=== PATIENT | female | born 1945 ===

== ENCOUNTER → 2016-11-16 | Outpatient (CLI) | payer OTHER | LOC: BHFA 11:30 | PROVIDERS: ATTEND Internal Medicine Cardiovascular Disease | DX: Z51.11 Encounter for antineoplastic chemotherapy (principal) ==

== ENCOUNTER → 2016-11-20 | Outpatient (CLI) | payer OTHER ==
[~2016-11-20] MED LIST: GADOBUTROL 10 ML VIAL IVP ONE
== END ==
LOC: FIMAGING 13:59
PROVIDERS: ATTEND Internal Medicine Hematology & Oncology
DX: C50.211 Malignant neoplasm of upper-inner quadrant of right female breast (principal); R63.4 Abnormal weight loss; D49.6 Neoplasm of unspecified behavior of brain
CPT/HCPCS: 70553; A9585

== ENCOUNTER 2016-12-09 07:34 | Observation (INO) | payer OTHER ==
[~2016-12-09 07:34] MED LIST changes: -GADOBUTROL 10 ML VIAL IVP ONE; +ceFAZolin 2 GM/DEXTROSE 100 ML IV ONE
[2016-12-09] MEDS ORDERED: BUPIVACAINE 0.5% 30 ML SDV ONE (08:13)
[2016-12-09] MEDS ORDERED: THROMBIN (BOVINE) 20,000 UNIT SPRAY TP ONE (08:13)
[2016-12-09] MEDS ORDERED: MIDAZOLAM 2 MG/2 ML VIAL ONE (12:37)
[2016-12-09] MEDS ORDERED: KETAMINE 100 MG/10 ML SYR ONE (12:41)
[2016-12-09] MEDS ORDERED: HYDROmorphONE/DILAUDID 2 MG/ML INJ ONE (12:41)
[2016-12-09] MEDS ORDERED: PROPOFOL 200 MG/20 ML VIAL ONE ×2 (12:41)
[2016-12-09] MEDS ORDERED: LIDOCAINE 2% 100 MG/5 ML SYR ONE (12:46)
[2016-12-09] MEDS ORDERED: ROCURONIUM 50 MG/5 ML VIAL ONE (12:47)
[2016-12-09] MEDS ORDERED: ONDANSETRON 4 MG/2 ML VIAL ONE (13:34)
[2016-12-09] MEDS ORDERED: DEXAMETHASONE 4 MG/ML VIAL ONE (13:34)
[2016-12-09] MEDS ORDERED: ACETAMINOPHEN 325 MG TAB PO PRN (14:12)
[2016-12-09] MEDS ORDERED: HYDROmorphONE/DILAUDID 1 MG/ML SYR IVP PRN (14:12)
[2016-12-09] MEDS ORDERED: ONDANSETRON 4 MG/2 ML VIAL IVP PRN (14:12)
[2016-12-09] MEDS ORDERED: diphenhydrAMINE 25 MG CAP PO PRN (14:12)
[2016-12-09] MEDS ORDERED: ONDANSETRON DISINTEGRATING 4 MG TAB PO PRN (14:12)
[2016-12-09] MEDS ORDERED: NS 1,000 ML IV SCH (14:15)
[2016-12-09] MEDS ORDERED: PHENYLEPHRINE HCL 100 MCG/ML SYR ONE (14:32)
[2016-12-09] MEDS ORDERED: SUGAMMADEX SODIUM 200 MG/2 ML VIAL IVP ONE (14:37)
[2016-12-09] MEDS ORDERED: HYDROmorphONE/DILAUDID 1 MG/ML SYR ONE (15:28)
--- NOTE | 2016-12-09 16:43 | POSTOPPROG ---
Post Op Note Date of Operation: 12/09/16 Surgeon: Funmilayo Singer Diabetes Territory Manager: alyssa Anesthesiologist: sachin Anesthesia: GET(General Endotracheal) Pre-op Diagnosis: r breast cancer Post-op Diagnosis: same Indication: 71yo F with recurrent r breast ca Procedure: b mastectomy, b sln bx, port placement Findings: b sln neg Inf/Abcess present in the surg proc area at time of surgery?: No Depth: Deep Incisional (Fascial) EBL: 50-100 Drains: Bienvenido Alberto (x2)
--- NOTE | 2016-12-09 16:46 | SOAPPROG ---
SOAP Progress Note Assessment/Plan: Assessment: CXR neg for pneumothorax Plan: 12/09/16 16:45 Objective: Vital Signs Temp Pulse Resp BP Pulse Ox 36.5 C 54 L 8 L 157/71 H 95 12/09/16 15:46 12/09/16 15:46 12/09/16 16:20 12/09/16 16:17 12/09/16 16:20 12/08/16 12/09/16 12/10/16 05:59 05:59 05:59 Intake Total 1000 Output Total 140 Balance 860 ICD10 Worksheet Patient Problems: Problems Problem Status Onset Breast cancer Acute - ICD10 Problem Qualifiers (1) Breast cancer Qualifiers: Breast location: upper inner quadrant of breast Estrogen receptor status: E Patient sex: female Laterality: right
[2016-12-09] MEDS: HYDROCODONE/APAP 5/325 TAB PO PRN ×2 (20:01→23:54)
[2016-12-10] MEDS: HYDROCODONE/APAP 5/325 TAB PO PRN ×5 (04:42→20:58)
[2016-12-10] MEDS: LEVOTHYROXINE 50 MCG TAB PO SCH (06:22)
--- NOTE | 2016-12-10 06:38 | SOAPPROG ---
SOAP Progress Note Assessment/Plan: Assessment/Plan: POD#1 s/p mily mastectomies c SLNB - Doing well, pain appears well controlled. Tolerating clears. JPs 80/60cc respectively, serosang. Flaps are flat, warm with clean dressings. OOB, reg diet. Wants to stay another day. Looking good otherwise 12/10/16 06:37 Objective: Vital Signs Temp Pulse Resp BP Pulse Ox 36.9 C 50 L 16 129/76 H 98 12/10/16 04:50 12/10/16 04:50 12/10/16 04:50 12/10/16 04:50 12/10/16 04:50 12/09/16 12/10/16 12/11/16 05:59 05:59 05:59 Intake Total 2230 Output Total 720 Balance 1510 ICD10 Worksheet Patient Problems: Problems Problem Status Onset Breast cancer Acute
[2016-12-10] MEDS: ASPIRIN EC 81 MG TAB PO SCH (08:35)
[2016-12-10] MEDS: CYANO/VITAMIN B12 1000 MCG TAB PO SCH (08:35)
[2016-12-10] MEDS: metFORMIN HCL 500 MG TAB PO SCH ×2 (08:35→18:21)
[2016-12-10] MEDS: CHOLECALCIFEROL VIT D3 1,000 UNITS TAB PO SCH (08:35)
[2016-12-10] MEDS: FERROUS SULFATE 325 MG TAB PO SCH (08:36)
[2016-12-10] MEDS ORDERED: NON-FORMULARY NEW DRUG (Metformin Hcl [Metformin 1000 Mg] 1,000 MG) PO SCH (09:00)
[2016-12-10] MEDS ORDERED: VALSARTAN PO SCH (09:00)
[2016-12-10] MEDS ORDERED: HYDROCHLOROTHIAZIDE PO SCH (09:00)
[2016-12-10] MEDS ORDERED: [UNRECOGNIZED DRUG - OTHER] PO SCH (09:00)
[2016-12-10] MEDS: ATENOLOL 50 MG TAB PO SCH (13:58)
[2016-12-10] MEDS: VALSARTAN/HCTZ 80-12.5MG TAB PO SCH (17:10)
[2016-12-10] MEDS ORDERED: FERROUS SULFATE 325 MG TAB PO SCH (18:00)
[2016-12-10] MEDS ORDERED: ATORVASTATIN CALCIUM 20 MG TAB PO SCH (21:00)
[2016-12-11] MEDS: HYDROCODONE/APAP 5/325 TAB PO PRN ×3 (02:22→11:48)
[2016-12-11] MEDS: LEVOTHYROXINE 50 MCG TAB PO SCH (06:17)
[2016-12-11 08:55] VITALS: BP 115/54; PULSE 56; RESP 18; TEMP 98.7; O2SAT 92
[2016-12-11] MEDS: CYANO/VITAMIN B12 1000 MCG TAB PO SCH (09:45)
[2016-12-11] MEDS: metFORMIN HCL 500 MG TAB PO SCH (09:45)
[2016-12-11] MEDS: CHOLECALCIFEROL VIT D3 1,000 UNITS TAB PO SCH (09:46)
[2016-12-11] MEDS: FERROUS SULFATE 325 MG TAB PO SCH (09:46)
[2016-12-11] MEDS: ASPIRIN EC 81 MG TAB PO SCH (09:46)
[2016-12-11] MEDS: ATENOLOL 50 MG TAB PO SCH (09:48)
[2016-12-11] MEDS: VALSARTAN/HCTZ 80-12.5MG TAB PO SCH (09:48)
--- NOTE | 2016-12-11 12:38 | SOAPPROG ---
SOAP Progress Note Assessment/Plan: Assessment: sp bilat mastectomies/ afebrile/ wounds ok/ drainage decreased Plan:home 12/11/16 12:37 Objective: Vital Signs Temp Pulse Resp BP Pulse Ox 37.1 C 56 L 18 115/54 L 92 12/11/16 08:54 12/11/16 08:54 12/11/16 08:54 12/11/16 08:54 12/11/16 08:54 12/10/16 12/11/16 12/12/16 05:59 05:59 05:59 Intake Total 2230 350 Output Total 720 90 Balance 1510 260 ICD10 Worksheet Patient Problems: Problems Problem Status Onset Breast cancer Acute
--- NOTE | 2016-12-12 10:32 | GOP ---
[f rep st] OPERATIVE REPORT DATE OF OPERATION: 12/09/2016 SURGEON: Funmilayo Singer MD CREDIT OPERATIONS SPECIALIST: WINSTON Whittaker ANESTHESIA: General. ANESTHESIOLOGIST: Chaka Joyner MD PREOPERATIVE DIAGNOSIS: Recurrent right breast cancer. That is a 2nd primary right breast cancer, upper inner quadrant. POSTOPERATIVE DIAGNOSIS: Recurrent right breast cancer. That is a 2nd primary right breast cancer, upper inner quadrant. PROCEDURE PERFORMED: Bilateral mastectomy, bilateral sentinel lymph node and left ultrasound-guided internal jugular PowerPort placement. FINDINGS: Bilateral sentinel lymph node negative. ESTIMATED BLOOD LOSS: 50 cc. INDICATIONS: The patient is a 71-year-old woman who has a history of a right upper inner breast can cer that was treated with lumpectomy and radiation. Her scar started puckering. She has developed a 2nd primary in this site. DESCRIPTION OF PROCEDURE: The patient was brought into the operating room, placed supine on the tab le, and general anesthesia was administered. Her bilateral neck and chest were prepped and draped i n the usual sterile fashion. I made an ellipse around her left breast and I created skin flaps that occurred to the clavicle, sternum, inframammary fold, and mid axillary line. I used the gamma prob e to identify the sentinel lymph node, which was low. I excised this and sent this to Pathology for frozen. The breast was removed including the pectoralis fascia. It was marked short superior, kevin g lateral. In a similar fashion, I performed a simple mastectomy with sentinel lymph node on the ri ght side. Hemostasis was achieved in each wound. Next, I used the ultrasound to access the left internal jugular vein. There was dark return of bloo d flow. I threaded the guidewire and removed the needle. Under fluoroscopy, I manipulated the wire so that it would be going into the IVC. I tunneled the port from the mastectomy incision up to the insertion site. The catheter was measured under fluoroscopy and cut to size. Using the Seldinger technique, I placed a dilator and sheath over the wire. I removed the wire and the dilator. I thre aded the catheter through the sheath. The port was sutured to the pectoralis with 3-0 Vicryl. The port withdrew blood easily and was flushed with heparin. Placement was again confirmed with fluoros copy. Next, I closed each of the mastectomy incisions with 3-0 Vicryl, followed by 4-0 Monocryl. Mastisol and Steri-Strips were applied. She was awakened in the operating room, extubated, transferred to P ACU in stable condition. /[id number]/MODL
== END 2016-12-11 16:54 | disposition home or self-care (01) ==
LOC: INTOOBSV 07:34 → F3E 07:34 → F1N 07:50 → PREOBSVTOIN 10:33 → F1N 16:52
PROVIDERS: ADMIT Surgery; ATTEND Surgery
PROC: 07B60ZX Excision of Left Axillary Lymphatic, Open Approach, Diagnostic (ICD-10-PCS; principal; 2016-12-09 10:00)
PROC: 0JH60XZ Insertion of Tunneled Vascular Access Device into Chest Subcutaneous Tissue and Fascia, Open Approach (ICD-10-PCS; principal; 2016-12-09 10:00)
PROC: 07B50ZX Excision of Right Axillary Lymphatic, Open Approach, Diagnostic (ICD-10-PCS; principal; 2016-12-09 10:00)
PROC: 0HTV0ZZ Resection of Bilateral Breast, Open Approach (ICD-10-PCS; principal; 2016-12-09 10:00)
PROC: 02HV33Z Insertion of Infusion Device into Superior Vena Cava, Percutaneous Approach (ICD-10-PCS; principal; 2016-12-09 10:00)
PROC: 3E0W3KZ Introduction of Other Diagnostic Substance into Lymphatics, Percutaneous Approach (ICD-10-PCS; 2016-12-09 10:00)
DX: C50.211 Malignant neoplasm of upper-inner quadrant of right female breast (principal); I10 Essential (primary) hypertension; E78.5 Hyperlipidemia, unspecified; E11.9 Type 2 diabetes mellitus without complications; E03.9 Hypothyroidism, unspecified; Z92.3 Personal history of irradiation
CPT/HCPCS: 19303; 36561; 38500; 71010; 76001; 78195; A9520; C1788; J0690; J1100; J1170; J1642; J2001; J2250; J2370; J2405; J2704

== ENCOUNTER → 2017-06-30 | Outpatient (CLI) | payer OTHER ==
[~2017-06-30] MED LIST changes: +GADOBUTROL 10 ML VIAL IVP ONE; -ceFAZolin 2 GM/DEXTROSE 100 ML IV ONE
== END ==
LOC: FIMAGING 07:48
PROVIDERS: ATTEND Physician Assistant
DX: R41.3 Other amnesia (principal); C50.211 Malignant neoplasm of upper-inner quadrant of right female breast
CPT/HCPCS: 70553; A9585

== ENCOUNTER → 2018-04-06 | Outpatient (CLI) | payer OTHER | LOC: FIMAGING 14:03 | PROVIDERS: ATTEND Internal Medicine | DX: C50.211 Malignant neoplasm of upper-inner quadrant of right female breast (principal); R22.0 Localized swelling, mass and lump, head | CPT/HCPCS: 70553; A9585; 82565-PO ==